=== PATIENT | female | born 1955 | race Caucasian/White ===

== ENCOUNTER 2017-11-02 15:49 | Observation (INO) | payer OTHER ==
[2017-11-02] MEDS ORDERED: Aspirin Low Dose CHEW TAB* 81 MG PO ONE (16:46)
--- NOTE | 2017-11-02 17:03 | ED ---
Tiesha Rivera Gabriel, scribed for Marcelina Bridges MD on 11/02/17 at 1646 . HPI Chest Pain - HPI Summary HPI Summary: This patient is a 62 year old female presenting to [facility] accompanied by a friend with a chief complaint of dull chest pain since yesterday that worsened around noon today. Patient states symptoms are worsened by mild walking and deep breaths. Pt denies feeling SOB. Pt took Motrin this am with little change in sx. Pt states resisted walking 100 ft second to discomfort. Symptoms are alleviated by ibuprofen, and patient states she took 600mg at 8:00am. Patient additionally reports intermittent leg cramps, but denies any recent changes of exacerbation of leg cramps. No leg edema. Patient denies nausea, diaphoresis, diarrhea, dark or bloody stool, recent additional exertion, recent illness, and SOB. Patient has a history of breast cancer 11 yeats ago, superficial lower extremity years ago treated with ASA. Pt states family hx of blood clots, but states her testing for the clot disorder was negative. Last cardiac stress test > 11 years ago. Pt's medications reviewed this visit. - History of Current Complaint Time Seen by Provider: 11/02/17 16:26 Hx Obtained From: Patient, Family/Beauty Director Onset/Duration: Started Days Ago - Yesterday Timing: Constant Initial Severity: Mild Current Severity: Moderate Chest Pain Location: Discrete at:, Mid Sternal Chest Pain Radiates: No Character: Dull/Aching Aggravating Factor(s): Exertion - with mild walking, Deep Breaths Alleviating Factor(s): Medication - ibuprofen Associated Signs and Symptoms: Negative: Diaphoresis - Allergy/Home Medications Allergies/Adverse Reactions: Allergies Allergy/AdvReac Type Severity Reaction Status Date / Time No Known Allergies Allergy Verified 11/02/17 17:18 PMH/Surg Hx/FS Hx/Imm Hx Previously Healthy: Yes Endocrine/Hematology History: Denies: Hx Diabetes Cardiovascular History: Denies: Hx Hypertension, Hx Pacemaker/ICD History: Denies: Hx Dialysis, Hx Renal Disease Musculoskeletal History: Reports: Hx Osteoporosis Denies: Hx Rheumatoid Arthritis Sensory History: Denies: Hx Hearing Aid Psychiatric History: Denies: Hx Panic Disorder - Cancer History Cancer Type, Location and Year: LT BREAST - MASTECTOMY 2005 Hx Chemotherapy: Yes - BREAST Hx Radiation Therapy: Yes - BREAST - Surgical History Surgery Procedure, Year, and Place: Lt Mastectomy 2005,Breast Reduction 1971, Breast biopsies in her teens and twentys.BENIGN - REMOVED 1977 - OVARIAN TUMOR REMOVAL Infectious Disease History: Reports: Hx Shintio Denies: History Other Infectious Disease, Traveled Outside the [place] in Last 30 Days - Family History Known Family History: Positive: Blood Disorder - blood clots - Social History Occupation: Employed Full-time - Teacher Alcohol Use: None Substance Use Type: Reports: None Hx Tobacco Use: No Smoking Status (MU): Never Smoked Tobacco Review of Systems Negative: Skin Diaphoresis Positive: Chest Pain Negative: Diarrhea, Nausea Positive: Other - leg cramps, unchagned from baseline All Other Systems Reviewed And Are Negative: Yes Physical Exam Triage Information Reviewed: Yes Appearance: Positive: Well-Appearing, No Pain Distress, Well-Nourished Skin: Positive: Warm, Skin Color Reflects Adequate Perfusion, Dry Head/Face: Positive: Normal Head/Face Inspection Eyes: Positive: Conjunctiva Clear ENT: Positive: Hearing grossly normal Neck: Positive: Supple, Nontender, No Lymphadenopathy Respiratory/Lung Sounds: Positive: Clear to Auscultation, Breath Sounds Present , Decreased Breath Sounds Cardiovascular: Positive: Normal, RRR, Other - no reproduction of pain with direct palp. Abdomen Description: Positive: Nontender, No Organomegaly, Soft Bowel Sounds: Positive: Present Musculoskeletal: Positive: Normal, Strength/ROM Intact Neurological: Positive: Normal, Sensory/Motor Intact, Alert, Oriented to Person Place, Time Psychiatric: Positive: Normal AVPU Assessment: Alert - Roseanne Coma Scale Best Eye Response: 4 - Spontaneous Best Motor Response: 6 - Obeys Commands Best Verbal Response: 5 - Oriented Diagnostics - Laboratory Result Diagrams: 11/02/17 17:10 11/02/17 17:10 Lab Statement: Any lab studies that have been ordered have been reviewed, and results considered in the medical decision making process. - Radiology Chest XR Radiology Interpretation Completed By: Radiologist - NO ACTIVE DISEASE. ED physician has reviewed this report. - EKG 15:55 Cardiac Rate: NL EKG Rhythm: Sinus Rhythm - at 78 BPM EKG Interpretation: no acute ST/T changes Re-Evaluation - Re-Evaluation First Eval Change: Improved - reviewed labs and imaging with pt twyla dmit for serial trop and stress test pt in agreement with plan d-dimer neg - will hold on CT spoke to Dr. Russell - accepting Chest Pain Course/Dx - Course Assessment/Plan: Pt with sternal chest discomfort since yesterday - pt resisting walking 100ft second to discomfort. No fevers, chills. EKG reviewd - no acute changes. concern second to pain increases with activity. Will check labs, trop, cxr, ddimer. CTA if + ddimer. ASA. anticipate obs for serial trop and stress test - Diagnoses Provider Diagnoses: Chest pain - Provider Notifications Discussed Care Of Patient With: De Russell Time Discussed With Above Provider: 17:59 Instructed by Provider To: Admit As Observation - We discussed patient care with Dr. Russell and they accepted the patient for admittance. Discharge - Discharge Plan Condition: Stable Disposition: ADMITTED TO [facility] Referrals: Marly Morse NP [Primary Care Provider] - The documentation as recorded by the Tiesha johnson Gabriel accurately reflects the service I personally performed and the decisions made by , Marcelina Bridges MD.
--- NOTE | 2017-11-02 17:25 | RAD ---
INDICATION: Chest pain COMPARISON: None TECHNIQUE: An AP portable view obtained at 1700 hours is submitted. FINDINGS: Bones/Soft Tissues: There are no acute bony findings. There is left chest wall surgery with axillary dissection Cardiomediastinal: The cardiomediastinal silhouette is normal. Lungs: There are no infiltrates. Pleura: There are no pleural effusions. Other: None IMPRESSION: NO ACTIVE DISEASE.
[2017-11-02 17:27] LABS: Hematocrit 37 % (35-47); Hemoglobin 12.5 g/dl (12.0-16.0); Mean Corpuscular HGB Conc 34 g/dl (31-36); Mean Corpuscular Hemoglobin 30 pg (27-31); Mean Corpuscular Volume 87 fL (80-97); Mean Platelet Volume 8 um3 (7.4-10.4); Red Blood Count 4.25 10^6/ul (4.0-5.4); Red Cell Distribution Width 14 % (10.5-15); White Blood Count 9.3 10^3/ul (3.5-10.8)
[2017-11-02 17:45] LABS: Albumin 4.2 g/dL (3.2-5.2); BUN/Creatinine Ratio 18.9 (8-20); Calcium 9.6 mg/dL (8.6-10.3); EGFR African American 76.4 (>60); EGFR Non-African American 59.4 (>60); Globulin 2.9 g/dL (2-4); Magnesium 2.1 mg/dL (1.9-2.7); Potassium 4.5 mmol/L (3.5-5.0); Total Bilirubin 0.6 mg/dL (0.2-1.0); Total Protein 7.1 g/dL (6.4-8.9)
[2017-11-02] MEDS: Acetaminophen TAB* 325 MG PO PRN (20:03)
--- NOTE | 2017-11-02 22:44 | HP ---
CC: Marly Morse NP * HISTORY AND PHYSICAL: DATE OF ADMISSION: 11/02/17 PRIMARY CARE PROVIDER: Marly Morse NP. ATTENDING PHYSICIAN: Vance Hernandez MD (dictated by Génesis Chapa NP). CHIEF COMPLAINT: Chest pain. HISTORY OF PRESENT ILLNESS: Ms. Santillan is a 62-year-old female with past medical history significant for breast cancer, status post chemoradiation and a mastectomy, osteoporosis, varicose veins and a possible remote history of phlebitis, who presents to the emergency room with complains of epigastric chest discomfort that started yesterday. The patient states that today she started with a dull discomfort, this progressed to worse pain over the course of the day. She noticed it was worse with exertion. The patient also states that the pain is worse when she lies flat and better when she is sitting up. Her family has a history of clotting disorders. She denies any fevers or chills. She currently has a suppressed cough. No nausea, vomiting, diarrhea, urinary symptoms, lightheadedness or dizziness. She presented to the emergency room for further evaluation of her symptoms. While in the emergency room, the patient received aspirin and she had labs that were unremarkable. Initial troponin of 0.00. D-dimer less than 200. She had an EKG showing a sinus rhythm at a rate of 78. Chest x-ray with no active cardiopulmonary disease. Hospitalists were asked to evaluate the patient for admission. PAST MEDICAL HISTORY: 1. Breast cancer, status post chemoradiation. 2. Osteoporosis. 3. Varicose veins. 4. Possible phlebitis. PAST SURGICAL HISTORY: Status post left mastectomy in 2005. HOME MEDICATIONS: Include, Fosamax 70 mg oral every Thursday. ALLERGIES: No known drug allergies. FAMILY HISTORY: The patient's father had a history of [place] at age 39 and passed from colon cancer. She denies any family history of diabetes mellitus. SOCIAL HISTORY: The patient denies tobacco or recreational drug use. She rarely drinks alcohol. Her daughter, Anabell, will be her surrogate decision maker in the event she is unable to make decisions for herself. REVIEW OF SYSTEMS: I performed 14 point review of systems. All the pertinent positives and negatives are mentioned in the history of present illness. The remaining review of systems are negative. PHYSICAL EXAMINATION GENERAL: The patient is alert, pleasant, appears to be in no acute distress. VITAL SIGNS: Temperature 98.7, heart rate 75, respiratory rate 14, O2 sat 100% on room air, blood pressure 154/86. HEENT: Normocephalic, atraumatic. Pupils are equal and reactive to light. Extraocular movements are intact. RESPIRATORY: There is no accessory muscle use. Lungs are clear to auscultation bilaterally. CARDIOVASCULAR: Regular rate and rhythm. S1, S2 present. There are no murmurs , rubs, or gallops. ABDOMEN: Soft, nontender, nondistended. Bowel sounds present x4. EXTREMITIES: No lower extremity edema. DP and PT pulses are 2+ and symmetric. MUSCULOSKELETAL: There is no clubbing or cyanosis noted. The patient exhibits good strength in all extremities. The patient's chest discomfort is reproducible with palpations. NEUROLOGIC: The patient is alert and oriented x4. Cranial nerves II through XII are grossly intact. PSYCHOLOGICAL: The patient is calm and cooperative. SKIN: There are no rashes or abnormalities seen. DIAGNOSTIC STUDIES/LABORATORY DATA: Sodium 137, potassium 4.7, chloride 104, CO2 28, BUN 18, creatinine 0.95, glucose 101. D-dimer less than 200, troponin 0.00. White blood cell count 9.3, hemoglobin 12.5, hematocrit 37, and platelet count 350. EKG shows sinus rhythm, rate of 78, and no acute signs of ischemia. There are no previous EKGs for comparison. Chest x-ray from today. Radiologist's impression, no active disease. IMPRESSION: Ms. Santillan is a 62-year-old female with past medical history significant for breast cancer and osteoporosis, who presents to the emergency room with complaints of chest discomfort for the last day that is worse with exertion. She will be admitted as an observation for typical chest pain, rule out acute coronary syndrome. ASSESSMENT/PLAN: 1. Atypical chest pain: The patient states that her pain is worse with ambulation. She has found nothing that relieves the pain. Her initial troponin is 0.00. She has no EKG changes. We will trend her troponins. I will get a nuclear exercise stress test in the morning. We will check fasting lipids and hemoglobin A1c in the morning. 2. Osteoporosis: We will hold the patient's Fosamax, she only takes this on Thursday. 3. Fluids, electrolytes, nutrition: The patient will be on a heart-healthy diet, n.p.o. after midnight for a stress testing in the morning. 4. Code status: Full code. 5. DVT prophylaxis: The patient is at highest risk and we will have INGRID stockings and subcu heparin. 6. Disposition: Observation. TIME SPENT: Time for this admission was approximately 60 minutes, greater than half of that was spent with the patient discussing medications, past medical history, the events leading to her arrival today, performing a physical examination. The case has been reviewed with the attending, Dr. Hernandez, who agrees with the plan of care. Reviewed by MILKA LEVIN 11/04/172018 [id number]/[facility] #: [id number] NICK
[2017-11-02] MEDS: Heparin VIAL(*) 5000 UNITS/ML VIAL (FIVE THOUSAND) SUBCUT SCH (22:55)
[2017-11-03] MEDS: Acetaminophen TAB* 325 MG PO PRN ×2 (04:38→09:17)
[2017-11-03] MEDS: Heparin VIAL(*) 5000 UNITS/ML VIAL (FIVE THOUSAND) SUBCUT SCH ×3 (04:40→13:24)
[2017-11-03 11:53] VITALS: BP 124/84
--- NOTE | 2017-11-03 12:47 | RAD ---
HISTORY: Chest pain COMPARISONS: None relevant TECHNIQUE: A 1 day stress/rest myocardial perfusion study was performed, with exercise stress. The exercise portion was performed using the Contreras protocol, for a total METs of 10.1. The stress portion was monitored by Dr. Caceres. Gated SPECT imaging was performed, with CT-based attenuation correction DOSE: Stress: Technetium 99m tetrofosmin, 25.69 millicuries, injected at 10:18 AM on November 03, 2017 Rest: Technetium 99m tetrofosmin, 10.83 millicuries, injected at 6:30 AM on November 03, 2017 Pharmacologic agent: None FINDINGS: CARDIAC MONITORING: Peak heart rate of 175 bpm, 111% of predicted EF: 64% TID: 0.96 MOTION: Normal motion, with normal wall thickening. PERFUSION: There is a small defect of the inferior septum that resolves with attenuation correction and is likely artifactual. OTHER: None IMPRESSION: NO DEFINITE PERFUSION DEFECT. NORMAL EJECTION FRACTION. ASSESSMENT: LOW RISK. Based on imaging criteria from ACC/AHA 2002. Guideline Update for the Management of Patient's with Chronic Stable Angina, table 23. Noninvasive Risk Stratification.
--- NOTE | 2017-11-03 14:29 | PN ---
Subjective Date of Service: 11/03/17 Interval History: Patient seen and examined at bedside. Denies fever, chills, shortness of breath , lightheadedness or dizziness, N/V/D. Pt states that the sternal discomfort is now gone, but the discomfort has migrated to the right side of her chest. She reports recently driving and feeling really tense while she was driving, she feels that her pain is muscular. Tele: Sinus rhythm, rate Family History: Unchanged from Admission Social History: Unchanged from Admission Past Medical History: Unchanged from Admission Objective Active Medications: Acetaminophen (Tylenol Tab*) 650 mg PO Q4H PRN Reason: FEVER/PAIN Heparin Sodium (Porcine) (Heparin Vial(*)) 5,000 units SUBCUT Q8HR JACOB Vital Signs - 8 hr 11/03/17 11/03/17 11/03/17 08:00 08:03 11:29 Temperature 97.6 F 98.3 F Pulse Rate 68 80 Respiratory 16 16 16 Rate Blood Pressure 137/88 124/84 (mmHg) O2 Sat by Pulse 100 94 Oximetry Oxygen Devices in Use Now: None Appearance: NAD, sitting up on the side of the bed Ears/Nose/Mouth/Throat: Mucous Membranes Moist Respiratory: Symmetrical Chest Expansion and Respiratory Effort, Clear to Auscultation Cardiovascular: NL Sounds; No Murmurs; No JVD, RRR Abdominal: NL Sounds; No Tenderness; No Distention Extremities: No Edema Skin: No Rash or Ulcers Neurological: Alert and Oriented x 3, NL Muscle Strength and Tone Lines/Tubes/Other Access: Clean, Dry and Intact Peripheral IV - site benign Nutrition: Taking PO's Result Diagrams: 11/02/17 17:10 11/02/17 17:10 Assess/Plan/Problems-Billing Assessment: Ms. Santillan is a 62 yo female with PMH significant for breast CA and osteoporosis, who presented to the emergency room with complaints of chest discomfort. - Patient Problems (1) Chest pain Code(s): R07.9 - CHEST PAIN, UNSPECIFIED SNOMED Code(s): 39894963 Comment: - Suspect Muscular - Pt continues to have mild discomfort - Nuclear stress test - low risk (2) Osteoporosis Code(s): M81.0 - AGE-RELATED OSTEOPOROSIS W/O CURRENT PATHOLOGICAL FRACTURE SNOMED Code(s): 39740909 Comment: - Continue Fosamax (3) DVT prophylaxis Code(s): MTK9274 - SNOMED Code(s): 032887797 (4) Full code status Code(s): Z78.9 - OTHER SPECIFIED HEALTH STATUS SNOMED Code(s): 928610683 Status and Disposition: OBV. Stable for discharge to home today.
--- NOTE | 2017-11-04 04:54 | DS ---
CC: Marly Morse NP DISCHARGE SUMMARY: DATE OF ADMISSION: 11/02/17 DATE OF DISCHARGE: 11/03/17 ATTENDING PHYSICIAN: Dr. Vance Hernandez * (dictated by Génesis Chapa NP). PRIMARY CARE PROVIDER: Marly Morse NP PRIMARY DIAGNOSIS: Chest pain, suspect muscular in nature. SECONDARY DIAGNOSES: 1. History of breast cancer. 2. Osteoporosis. 3. Varicose veins. STUDIES WHILE IN THE HOSPITAL: 1. Chest x-ray from 11/02/17. Radiologist's impression: No active disease. 2. Nuclear exercise stress test from 11/03/17. Door Person's observation: The patient with atypical chest pain. Based on EKG, normal sinus rhythm. The patient exercised for 9.5 minutes. Chest pain, none. Arrhythmia, none. ST changes, none. Myoview injected at peak exercise. Door Person's conclusion: Normal maximal stress test. No ischemic EKG changes. Mild atypical chest pain. Low risk Taylor's score. EKG portion of exercise stress test, nuclear portion to be read separately by Radiology. Radiologist's impression: No definitive perfusion defect. Normal ejection fraction. Assessment, low risk. DISCHARGE MEDICATIONS: New home medications: 1. Ibuprofen 600 mg oral every 6 hours as needed for pain. 2. Acetaminophen 650 mg oral every 4 hours as needed for pain. Continued home medications: Fosamax 70 mg oral weekly on Sundays. HISTORY OF PRESENT ILLNESS/HOSPITAL COURSE: Ms. Santillan is a 62-year-old female with past medical history significant for breast cancer status post chemo and radiation and mastectomy, osteoporosis, varicose veins and a possible history of phlebitis, who presented to the emergency room with complaints of epigastric chest discomfort that had started the day prior. The patient described the pain as a dull discomfort that progressed to worse pain over the course of the day. She noticed the pain was often worse with exertion. She also reported that the pain was worse when she lied flat, better when she sat up. She has a family history of clotting disorder. She denied any fever, chills, nausea, vomiting, diarrhea, urinary symptoms, lightheadedness, dizziness , or diaphoresis. She reported an occasional cough. The patient also reports recently driving for a long period of time and feeling very tensed while driving. She presented to the emergency room for further evaluation of her symptoms. While in the emergency room, the patient received aspirin. Her labs were unremarkable. Her initial troponin was 0.00. Her D-dimer was less than 200. She had an EKG showing a sinus rhythm and a rate of 78, no acute signs of ischemia. She had a chest x-ray showing no active cardiopulmonary disease and the hospitalists were asked to evaluate the patient for admission. While in the hospital, she had her troponins trended, they were basically flat at 0.00, 0.00, and 0.01. She had fasting lipids checked. Her cholesterol was 222. Her triglycerides were 104. Her LDL was 123. Her other labs were unremarkable. Her chest pain during her stay migrated from more sternal to right breast discomfort. She underwent a nuclear exercise stress test showing a low risk. It was discussed with the patient, and it was felt that this was likely muscular and she was stable for discharge to home today. Ms. Santillan is stable for discharge to home today. Vital signs are as follows: Temperature 98.3, heart rate 80, respiratory rate 16, O2 sat 94% on room air, blood pressure 124/84. DISCHARGE PLAN: Ms. Santillan will be discharged to home. Activity as tolerated. She will be on a heart healthy diet. She is vegetarian and has been encouraged to watch what she is eating to help reduce her cholesterol. I did not start her on a statin at this time due to the ASCVD recommendations of lifestyle modifications to help lower her cardiovascular disease risk. The patient agrees with this. The patient has been asked to follow up with her primary care provider, Marly Morse NP. She has an appointment on November 11 at 4:10 p.m. The patient has been encouraged to take Motrin or Tylenol for any continued discomfort. Again, I suspect her pain is secondary to driving tensely and is musculoskeletal. The pain was reproducible yesterday, I am unable to reproduce the pain in the right breast today. The patient has been asked to return to the emergency room for any chest pain, shortness of breath. This is a summarized report of a complex medical history and hospital stay. For further details, please see the entire medical record. TIME SPENT: Time for this discharge was approximately 50 minutes, greater than half of that was spent with the patient discussing discharge plans and instructions. CONDITION ON DISCHARGE: Stable. Reviewed by MILKA LEVIN 11/04/172020 [id number]/[facility] #: [id number] NICK
== END 2017-11-03 15:45 | disposition home or self-care (01) ==
LOC: ED 15:49 → MEDTELE 18:04
PROVIDERS: ADMIT Internal Medicine; ATTEND Internal Medicine
DX: R07.9 Chest pain, unspecified (principal); M79.606 Pain in leg, unspecified; M81.0 Age-related osteoporosis without current pathological fracture; I83.90 Asymptomatic varicose veins of unspecified lower extremity; Z85.3 Personal history of malignant neoplasm of breast
CPT/HCPCS: 36415; 71010; 78452; 80053; 80061; 83036; 83735; 84484; 85025; 85379; 93005; 93017; 99283; A9270-GY; A9502; G0378; J1644